=== PATIENT | female | born 1945 | race Caucasian/White ===

== ENCOUNTER 2022-01-25 08:20 | Inpatient (IN) | payer MEDICARE, BC, SELFPAY ==
[2022-01-25 08:37] VITALS: BMI 31.1
[2022-01-25 08:46] VITALS: BP 167/80; PULSE 77; RESP 14; TEMP 36.4; O2SAT 96; BMI 30.8
--- NOTE | 2022-01-25 09:48 | HMH.HP ---
*Admission Date: 01/25/22 *Chief complaint: chest pain *History of present illness: this patient presented to [facility] with episode of chest pain which was pressure and midsternal with relief with ntg and has elevated troponins and discussed with card and transferred for eval and treatment - no prev card issues and no recent stress test but has htn - i reviewed ed record and ekg from [facility] History I have reviewed the patient's past medical history: Yes Medical History: Reports:: Cancer (Lymphoma), Hyperlipidemia, Hypertension Denies:: Diabetes Mellitus Type 1, Diabetes Mellitus Type 2, MRSA *Have you ever received a pneumonia vaccine?: Yes *Have you received a flu vaccine this season?: Yes Other Medical History: Reports: Hypothyroidism Other Surgeries: Yes: , Hysterectomy-Total - *Social History Last grade of school completed: Some college Smoking Status: Never smoker Alcohol Intake: never *Occupational Status:: retired Household Members: spouse *Travel in the last 8 weeks: None Family Hx:: No significant family history Review of Systems - Review of Systems Review of systems:: pertinent systems reviewed and negative unless documented below - Constitutional Denies fever(s) - Eyes Denies change in vision - ENT Denies sore throat - *Cardiovascular Reports chest pain at rest, Reports radiating jaw, neck or arm pain - *Respiratory Denies cough - *Gastrointestinal Denies abdominal pain - *Genitourinary Denies blood in urine - *Musculoskeletal Denies joint pain - Integumentary/Breasts Denies rash - *Neurologic Denies headache(s), Denies seizure-like activity - Psychiatric Denies anxiety Meds Home Medications Medication Instructions Recorded Confirmed Type Cholecalciferol (Vitamin D3) 50,000 unit PO WEEKLY 01/25/22 01/25/22 History [Vitamin D3 50,000 unit Cap] Levothyroxine Sodium [Synthroid 75 mcg PO DAILY 01/25/22 01/25/22 History 75mcg (0.075mg) tablet] Lisinopril/Hydrochlorothiazide 1 tab PO BID 01/25/22 01/25/22 History [Lisinopril-Hctz 20-12.5 mg Tab*] Metoprolol Succinate [Metoprolol 50 mg PO DAILY 01/25/22 01/25/22 History Succinate 50mg Tablet*] Pantoprazole Sodium [Protonix 40mg 40 mg PO DAILY 01/25/22 01/25/22 History tablet] Propylene Glycol/Peg 400/Pf 1 each OP HS 01/25/22 01/25/22 History [Systane 0.3-0.4% Eye Drops] Trimethoprim 100 mg PO DAILY 01/25/22 01/25/22 History Allergies Allergy/AdvReac Type Severity Reaction Status Date / Time codeine Allergy Verified 01/25/22 08:55 nitrofurantoin Allergy Verified 01/25/22 08:55 [From Macrobid] peanut Allergy Verified 01/25/22 20:47 Penicillins Allergy Verified 01/25/22 08:55 Sulfa (Sulfonamide Allergy Verified 01/25/22 08:55 Antibiotics) Exam Vital signs and Labs for Last 24 Hours: Temp Pulse Resp BP Pulse Ox 97.5 F L 77 14 167/80 H 96 01/25/22 08:46 01/25/22 08:46 01/25/22 08:46 01/25/22 08:46 01/25/22 08:46 I & O for Last 24 hours: Intake & Output 01/22/22 01/23/22 01/24/22 01/25/22 11:59 11:59 11:59 11:59 Output Total 100 / 100 Balance -100 / -100 Weight 182 lb 8 oz - Constitutional no acute distress, obese - *Routine HEENT Exam Head: Present: normocephalic Eye: Present: EOMI, PERRL ENT: Present: mucous membranes dry - *Routine Neck Exam Present: supple. Absent: JVD - *Routine Respiratory Exam Present: CTA bilaterally - *Routine Cardiovascular Exam Present: RRR, murmur - *Routine Abdominal Exam Present: soft - *Routine Rectal Exam Rectal:: deferred - *Routine Genitalia Exam Genitalia:: deferred - *Routine Extremities Exam Absent: calf tenderness - *Routine Skin Exam Present: intact - *Routine Neurological Exam Present: alert, oriented X3, CN II-XII intact - Routine Psychiatric Exam Present: cooperative, good judgment Assessment and Plan (1) Chest pain Status: Acute
[2022-01-25 12:02] LABS: Coronavirus 19, PCR Not Detected (NotDetected); Influenza A, PCR Not Detected (NotDetected); Influenza B, PCR Not Detected (NotDetected)
--- NOTE | 2022-01-25 14:47 | P.CONPHA_ITS ---
[facility] Pharmacy VTE Monitoring - Patient Demographics Admission date: 01/25/22 Report Date: 01/25/22 Time: 14:47 Allergies/Adverse Reactions: Patient Allergies codeine Allergy (Verified 01/25/22 08:55) nitrofurantoin [From Macrobid] Allergy (Verified 01/25/22 08:55) Penicillins Allergy (Verified 01/25/22 08:55) Sulfa (Sulfonamide Antibiotics) Allergy (Verified 01/25/22 08:55) Height: 1.64 m Weight: 82.781 kg - VTE Risk VTE Score: 1 VTE Risk Level: Very Low Risk - Prophylaxis Types of VTE Prophylaxis: TEDS Knee High Location of Applied Device: Bilateral Lower Extremeties (WILMAR HOSE ORDERED)
[2022-01-25 16:00] VITALS: BP 146/67; PULSE 62; RESP 14; TEMP 36.4; O2SAT 93
[2022-01-25 16:41] VITALS: PULSE 70
--- NOTE | 2022-01-25 17:48 | PC.NURSE ---
pt has been up all shift. She is alert and approriate. Has denied any chest pain all shift. c/o JACK that was improved with tylenol.
[2022-01-25 20:00] VITALS: BP 141/65; PULSE 50; PULSE 54; RESP 16; TEMP 36.6; O2SAT 95
[2022-01-26] VITALS (14 sets, daily range): BP systolic 118–158; BP diastolic 53–86; PULSE 48–71; RESP 14–20; TEMP 36.5–36.7; O2SAT 90–95; BMI 31.3
--- NOTE | 2022-01-26 | IR_ITS ---
APPROVED REPORT Patient Location: Inpatient Director Of Construction: NICO Christianson RT (R) PROCEDURES Left heart catheterization Left ventriculogram Selective coronary angiogram Bilateral selective renal angiogram INDICATION Non-ST elevation myocardial infarction, Labile hypertension suspect renovascular hypertension, Suspect renal artery stenosis Informed consent was obtained prior to the procedure. COMPLICATIONS None Estimated Blood Loss: Less than 10 mls TECHNIQUE One percent lidocaine used to anesthetize the right anterior aspect of the wrist. The right radial artery was accessed via the Seldinger technique. A 6 Japanese sheath was placed in the right radial artery. 2.5 mg of verapamil, 800 mcg of nitroglycerin, 1mg Lidocaine and 5000 U Heparin were given through the arterial sheath. The papa catheter was also used to perform left heart catheterization, left ventriculogram and selective coronary angiogram. At the end of the procedure the sheath was removed good hemostasis was achieved using Traclet band, patient was transferred to the postop holding area in stable condition. ANGIOGRAPHIC RESULTS The left main artery Normal The left anterior descending artery Has mild proximal and mid vessel 10 to 20% luminal irregularities The circumflex artery Is large and dominant with mild 10% luminal irregularities The right coronary artery Nondominant without atherosclerosis. Large atrial branch has an anterior course and then dumps into the main stem of the pulmonary artery. 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 Medical management for coronary artery disease 2. Treatment of diastolic dysfunction which is the etiology for the elevated troponin 3. Treatment of hypertension Electronically signed by : Segundo Pryor MD 01/26/2022 14:58:41
[2022-01-26 06:28] LABS: Blood Urea Nitrogen 18 mg/dl (7-17); Calcium 8.7 mg/dl (8.4-10.2); Carbon Dioxide 29 mmol/L (22.0-30.0); Chloride 97 mmol/L (98-107); Chol/HDL Ratio 5.4 (1-3.5); Cholesterol 168 mg/dl (140-200); Creatinine Clearance Estimated 56 mL/min (50-200); Estimated Glomerular Filt Rate 48 ml/min (>60); GFR (African American) 58 ML/MIN (>60); Glucose 120 mg/dl (74-100); HDL Cholesterol 31 mg/dl (40-60); Sodium 129 mmol/L (136-145); Triglycerides 146 mg/dl (30-150); VLDL Cholesterol 29 mg/dL (0-40)
[2022-01-26 06:38] LABS: Direct LDL Cholesterol 93.68 mg/dL (100-129)
[2022-01-26 06:39] LABS: Basophils % 0.5 % (0.1-2.0); Eosinophils # 0.1 K/mm3 (0.0-0.4); Eosinophils % 1.8 % (0.1-12.0); Hematocrit 40.8 % (37.0-47.0); Hemoglobin 13.2 g/dL (12.2-16.2); Lymphocytes # 1.8 K/mm3 (0.7-4.5); Lymphocytes % 23.3 % (10-50); Mean Corpuscular HGB Conc 32.4 g/dL (31.8-35.4); Mean Corpuscular Volume 92.5 fl (81-99); Mean Platelet Volume 8.7 fl (7.4-10.4); Monocytes # 0.5 K/mm3 (0.1-1.0); Monocytes % 6.2 % (1.7-9.3); Neutrophils # 5.1 K/mm3 (1.8-7.8); Neutrophils % 68.2 % (37.0-80.0); Platelet Count 192 K/mm3 (142-424); Red Blood Count 4.41 M/mm3 (4.20-5.40); Red Cell Distribution Width 13.3 % (11.5-17.5); White Blood Count 7.5 K/mm3 (4.8-10.8)
--- NOTE | 2022-01-26 07:04 | PC.NURSE ---
late entry - no acute episodes overnight. No c/o of chest pain or soa during my shift. Pt being monitored via tele. IV infusing as ordered. Cardiology consult this AM. Call light in reach.
[2022-01-26 07:23] LABS: Anion Gap 7.3 mEq/L (5-15); Potassium 4.3 mmoL/L (3.5-5.1)
--- NOTE | 2022-01-26 07:35 | ECG_ITS ---
APPROVED REPORT Exam: Resting ECG HR:63 bpm ECG Measurements Heart Rate 63 AXES [place] 169 P -9 QRSd 82 QRS 63 QT 450 T 55 QTc 457 Conclusion SINUS RHYTHM WITH OCCASIONAL SUPRAVENTRICULAR PREMATURE COMPLEXES POSSIBLE RIGHT VENTRICULAR CONDUCTION DELAY [RSR (QR) IN V1/V2] BORDERLINE ECG UNCONFIRMED REPORT Electronically signed by : Gerber Waggoner MD 01/27/2022 16:40:40
--- NOTE | 2022-01-26 07:55 | PC.NURSE ---
critical magnesium passed on to Irlanda Graff RN at 0723 during report.
--- NOTE | 2022-01-26 08:00 | CA_ITS ---
APPROVED REPORT EXAM: Comprehensive 2D, Doppler, and color-flow Echocardiogram Corner Bead Operator: Deandra Schaffer RDCS Ht: 5 ft 6 in Wt: 182lbs BSA: 1.92 BP: 167/80 mmHg Indications: CP,HTN,HLP 2D Dimensions LVOT 1.50 cm (M/F) 1.5-2.5 M-Mode Dimensions RVDd 2.74 cm (0.9-2.6) LA Diam 4.00 cm (1.9-4.0) LVDd 4.54 cm (3.5-5.7) Ao Diam 2.36 cm (2.0-3.7) LVDs 3.09 cm (3.5-5.7) IVSd 0.84 cm (0.6-1.1) PWd 0.99 cm (0.6-1.1) EF (Teich) 60.20% FS 31.90% EDV (Teich) 94.40 mL ESV (Teich) 37.60 mL LV Diastology E Decel Time 217.00 (160-240 msec) E/A Ratio 0.6 MED E' 5.20 (< 7 cm/sec) E'/MED E' Ratio 9.71 (>14) LAT E' 4.90 (<10 cm/sec) E/LAT E' Ratio 10.31 (>14) Mitral Valve MV E Max Bandar. 50.00 (40-130 cm/s) MV A Velocity 83.00 (40-130 cm/s) E/A Ratio 0.61 MV Decel. Time 217.00 (160-240 ms) MV PHT 63.00 ms Left Ventricle Left atrium is mildly enlarged, left ventricle is normal size, mild concentric left ventricular hypertrophy, visually estimated ejection fraction 55% with no regional wall motion abnormality, grade 1 diastolic dysfunction seen without tissue Doppler evidence of raise left atrial pressure. Right Ventricle Right atrium and right ventricle are normal size and contractility. Aortic Valve Aortic valve is minimally thickened and fibrosed, there is no aortic stenosis or aortic insufficiency. Mitral Valve Mitral valve is grossly normal, there is trace mitral regurgitation. Tricuspid Valve Tricuspid valve grossly normal, there is trace tricuspid regurgitation, tricuspid rotation jet velocity is inadequate for calculation of the right ventricular systolic pressure. Pulmonic Valve Pulmonic valve is poorly visualized. Great Vessels Aortic root is normal size. Inferior vena cava normal size with normal inspiratory collapse. Pericardium No significant pericardial effusion noted. Conclusion 1. Mildly enlarged left atrium, normal left ventricular size, mild concentric left ventricular hypertrophy, visually estimated ejection fraction 55% with no regional wall motion abnormality, grade 1 diastolic dysfunction seen without tissue Doppler evidence of raise left atrial pressure. 2. Trace mitral and tricuspid regurgitation. 3. No significant pericardial effusion. 4. Inferior vena cava normal size with normal inspiratory collapse. Electronically signed by : Juan Diego Fletcher MD 01/26/2022 19:14:48
--- NOTE | 2022-01-26 08:01 | PC.NURSE ---
Dr. Sethi made aware verbally of MAG of 1.0.
--- NOTE | 2022-01-26 08:14 | HMH.CNCARD ---
History of Present Illness Consult date: 01/26/22 Requesting physician: Neftali Sethi Chief complaint: chest pain Additional Medical History:: 1. Hypertension 2. Hyperlipidemia A. History of diarrhea on statin therapy 3. Chest pain with elevated troponins, 01/25/2022 4. Hypothyroidism, on replacement therapy History of present illness: 76-year-old white female with history of hypertension presented to [facility] for evaluation of substernal chest pressure and squeezing sensation that has been intermittent with activity over the last 2 weeks. Reportedly troponins were noted to be elevated and arrangements were made for patient to be transferred to [facility] for cardiology consult. Patient is a non-smoker, nondiabetic with no prior history of coronary artery disease. She has a longstanding history of hypertension with recent fluctuations in blood pressure noted. She also describes several months history of intermittent fluttering sensation in the chest that only last 1 or 2 minutes. She denies any history of TIA or CVA symptoms. EKG is sinus rhythm with no acute ST segment changes. [facility] History Medical History: Reports:: Cancer (Lymphoma), Hyperlipidemia, Hypertension Denies:: Diabetes Mellitus Type 1, Diabetes Mellitus Type 2, MRSA *Have you ever received a pneumonia vaccine?: Yes *Have you received a flu vaccine this season?: Yes Other Medical History: Reports: Hypothyroidism Other Surgeries: Yes: , Hysterectomy-Total - *Social History Last grade of school completed: Some college Smoking Status: Never smoker Alcohol Intake: never *Occupational Status:: retired Household Members: spouse *Travel in the last 8 weeks: None Family Hx:: No significant family history Meds Home Medications Medication Instructions Recorded Confirmed Type Cholecalciferol (Vitamin D3) 50,000 unit PO WEEKLY 01/25/22 01/25/22 History [Vitamin D3 50,000 unit Cap] Levothyroxine Sodium [Synthroid 75 mcg PO DAILY 01/25/22 01/25/22 History 75mcg (0.075mg) tablet] Lisinopril/Hydrochlorothiazide 1 tab PO BID 01/25/22 01/25/22 History [Lisinopril-Hctz 20-12.5 mg Tab*] Metoprolol Succinate [Metoprolol 50 mg PO DAILY 01/25/22 01/25/22 History Succinate 50mg Tablet*] Pantoprazole Sodium [Protonix 40mg 40 mg PO DAILY 01/25/22 01/25/22 History tablet] Propylene Glycol/Peg 400/Pf 1 each OP HS 01/25/22 01/25/22 History [Systane 0.3-0.4% Eye Drops] Trimethoprim 100 mg PO DAILY 01/25/22 01/25/22 History Allergies Allergy/AdvReac Type Severity Reaction Status Date / Time codeine Allergy Verified 01/25/22 08:55 nitrofurantoin Allergy Verified 01/25/22 08:55 [From Macrobid] peanut Allergy Verified 01/25/22 20:47 Penicillins Allergy Verified 01/25/22 08:55 Sulfa (Sulfonamide Allergy Verified 01/25/22 08:55 Antibiotics) Exam Vital signs and Labs for Last 24 Hours: Temp Pulse Resp BP Pulse Ox 97.8 F 50 L 14 126/59 L 94 L 01/26/22 04:00 01/26/22 04:00 01/26/22 04:00 01/26/22 04:00 01/26/22 04:00 Laboratory Results - last 24 hr 01/25/22 11:34: SARS-CoV-2 (PCR) Not detected, Influenza A Untype (PCR) Not detected, Influenza Type B (PCR) Not detected 01/26/22 05:53: WBC 7.5, RBC 4.41, Hgb 13.2, Hct 40.8, MCV 92.5, MCH 30.0, MCHC 32.4, RDW 13.3, Plt Count 192, MPV 8.7, Neut % (Auto) 68.2, Lymph % (Auto) 23.3, Mclean % (Auto) 6.2, Eos % (Auto) 1.8, Baso % (Auto) 0.5, Neut # (Auto) 5.1, Lymph # (Auto) 1.8, Mclean # (Auto) 0.5, Eos # (Auto) 0.1, Baso # (Auto) 0.0 01/26/22 05:53: Sodium 129 L, Potassium 4.3, Chloride 97 L, Carbon Dioxide 29, Anion Gap 7.3, BUN 18 H, Creatinine 1.10 H, Estimated Creat Clear 56, Estimated GFR 48 L, Est GFR ( Amer) 58 L, Glucose 120 H, Calcium 8.7, Magnesium 1.0 L, Triglycerides 146, Cholesterol 168, LDL Cholesterol Direct 93.68 L, VLDL Cholesterol 29, HDL Cholesterol 31 L, Cholesterol/HDL Ratio 5.4 H I & O for Last 24 hour
--- NOTE | 2022-01-26 13:48 | PC.NURSE ---
Pt going to lab manager at this time.
--- NOTE | 2022-01-26 16:58 | HMH.DCSUM ---
General - General Admission date:: 01/25/22 Discharge date: 01/26/22 HPI HPI: this patient presented to [facility] with episode of chest pain which was pressure and midsternal with relief with ntg and has elevated troponins and discussed with card and transferred for eval and treatment - no prev card issues and no recent stress test but has htn - i reviewed ed record and ekg from [facility] - Hospital Course Hospital Course: Abnormal Lab Results 01/26/22 05:53: Sodium 129 L, Chloride 97 L, BUN 18 H, Creatinine 1.10 H, Estimated GFR 48 L, Est GFR ( Amer) 58 L, Glucose 120 H, Magnesium 1.0 L, LDL Cholesterol Direct 93.68 L, HDL Cholesterol 31 L, Cholesterol/HDL Ratio 5.4 H Ordering Physician: Segundo Pryor MD Date of Service: 01/26/22 Procedure(s): CL lhc w ventricle Accession Number(s): [id number] cc: Neftali Sethi MD; Segundo Pryro MD~ APPROVED REPORT Patient Location: Inpatient Bander Hand: NICO Christianson RT (R) PROCEDURES Left heart catheterization Left ventriculogram Selective coronary angiogram Bilateral selective renal angiogram INDICATION Non-ST elevation myocardial infarction, Labile hypertension suspect renovascular hypertension, Suspect renal artery stenosis Informed consent was obtained prior to the procedure. COMPLICATIONS None Estimated Blood Loss: Less than 10 mls TECHNIQUE One percent lidocaine used to anesthetize the right anterior aspect of the wrist. The right radial artery was accessed via the Seldinger technique. A 6 Danish sheath was placed in the right radial artery. 2.5 mg of verapamil, 800 mcg of nitroglycerin, 1mg Lidocaine and 5000 U Heparin were given through the arterial sheath. The papa catheter was also used to perform left heart catheterization, left ventriculogram and selective coronary angiogram. At the end of the procedure the sheath was removed good hemostasis was achieved using Traclet band, patient was transferred to the postop holding area in stable condition. ANGIOGRAPHIC RESULTS The left main artery Normal The left anterior descending artery Has mild proximal and mid vessel 10 to 20% luminal irregularities The circumflex artery Is large and dominant with mild 10% luminal irregularities The right coronary artery Nondominant without atherosclerosis. Large atrial branch has an anterior course and then dumps into the main stem of the pulmonary artery. 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 Medical management for coronary artery disease 2. Treatment of diastolic dysfunction which is the etiology for the elevated troponin 3. Treatment of hypertension cardiology:OK for discharge home later today. Resume home medications with addition of Lasix 20 mg on Wednesday, Wednesday and Wednesday. BMP in 1 week and follow-up in our office in 1 week. Objective Vital signs: Temp Pulse Resp BP Pulse Ox 97.9 F 60 16 134/86 92 L 01/26/22 11:15 01/26/22 12:00 01/26/22 11:15 01/26/22 11:15 01/26/22 11:15 no acute distress - *Routine HEENT Exam Head: Present: normocephalic Eye: Present: PERRL ENT: Present: mucous membranes moist - *Routine Neck Exam Present: supple - *Routine Respiratory Exam Present: CTA bilaterally - *Routine Cardiovascular Exam Present: RRR - *Routine Abdominal Exam Present: soft, normoactive bowel sounds. Absent: tenderness - *Routine Extremities Exam Absent: cyanosis, clubbing, edema - *Routine Skin Exam Present: warm. Absent: rash - *Routine Neurological Exam Present: alert, oriented X3 Results Labs on day o
--- NOTE | 2022-01-26 20:42 | PC.NURSE ---
At time d/c was placed, pt did still have radial band on. Report given to Cindy Foster RN.
--- NOTE | 2022-01-26 21:39 | PC.NURSE ---
Radial band was removed. DSG placed to (R) radial cath site. Pt was monitored. No bleeding or hematoma noted. DC instructions provided. Medication prescription given. Pt left in WC to family car to home.
== END 2022-01-26 21:39 | disposition home or self-care (01) | DRG 281 ==
PROVIDERS: Internal Medicine; Admitting Provider Emergency Medicine; PCP Emergency Medicine; Visit Provider Emergency Medicine
PROC: 4A023N7 Measurement of Cardiac Sampling and Pressure, Left Heart, Percutaneous Approach (ICD-10-PCS; principal; 2022-01-26 11:00)
DX: I21.4 Non-ST elevation (NSTEMI) myocardial infarction (principal); C85.90 Non-Hodgkin lymphoma, unspecified, unspecified site; I25.10 Atherosclerotic heart disease of native coronary artery without angina pectoris; I10 Essential (primary) hypertension; E78.5 Hyperlipidemia, unspecified; E03.9 Hypothyroidism, unspecified; E66.9 Obesity, unspecified; Z68.31 Body mass index [BMI] 31.0-31.9, adult
CPT/HCPCS: 36252; 36415; 80048; 80061; 83735; 85025; 93005; 93306; 93458; 99152; C1725; C1769; C9803; J1644; J2405; Q9967; U0003; U0005

== ENCOUNTER → 2022-02-17 12:22 | Outpatient (CLI) | payer MEDICARE, BC, SELFPAY ==
--- NOTE | 2022-02-17 12:22 | CT_ITS ---
FINAL REPORT TECHNIQUE: Postcontrast axial images of the chest were performed in a CTA protocol. The study was performed with techniques to keep radiation dose as low as reasonably achievable, (ALARA). Individual dose reduction techniques using automated exposure control or adjustment of mA and/or kV according to the patient's size were employed. CLINICAL HISTORY: sob FINDINGS: The heart is normal in size. No adenopathy is identified. No pleural or pericardial effusion is identified. The mediastinal vasculature is well opacified. The thoracic aorta is normal in caliber with no focal aneurysm or dissection identified. No lung infiltrate or mass is identified. There is scarring in the lung bases. There is a moderate hiatal hernia. The images of the upper abdomen demonstrate moderately diffuse fatty infiltrated liver. There are postoperative changes from cholecystectomy. There is a benign-appearing cyst in the superior pole of the left kidney measuring 1.5 cm. IMPRESSION: No PE or dissection. Moderate hiatal hernia. Reviewed, Interpreted and Dictated by Issa Lay MD Transcribed by Carla Dumont Authenticated by Issa Lay MD on 02/17/2022 03:14:54 PM [facility]
== END ==
PROVIDERS: PCP Family Medicine; Visit Provider Internal Medicine
DX: R06.02 Shortness of breath (principal)
CPT/HCPCS: 71275; Q9967

== ENCOUNTER 2024-04-17 15:42 | Outpatient (CLI) | payer MEDICARE, BC, SELFPAY | END 2024-04-17 23:59 | disposition home or self-care (01) | LOC: RT 15:43 | PROVIDERS: PCP Family Medicine; Visit Provider Internal Medicine | DX: R06.00 Dyspnea, unspecified (principal); E66.9 Obesity, unspecified; I25.10 Atherosclerotic heart disease of native coronary artery without angina pectoris; E78.2 Mixed hyperlipidemia; H53.8 Other visual disturbances; Z68.31 Body mass index [BMI] 31.0-31.9, adult; I11.9 Hypertensive heart disease without heart failure | CPT/HCPCS: 93270 ==

== ENCOUNTER 2024-05-05 08:37 | Outpatient (CLI) | payer MEDICARE, BC, SELFPAY ==
--- NOTE | 2024-05-05 08:38 | MR_ITS ---
FINAL REPORT TECHNIQUE: Multiplanar MR, without and with gadolinium enhancement CLINICAL HISTORY: blurry vision RIGHT EYE COMPARISON: None FINDINGS: Diffusion sequences show no signal abnormality to indicate acute infarct. Mild atrophy is noted. There are periventricular white matter signal changes symmetrically and multiple small subcortical white matter signal changes. Findings are probably due to moderate chronic microvascular disease. No mass, hemorrhage or edema is seen. Ventricles are normal. Major vascular flow voids are intact. Following contrast administration, no abnormal parenchymal enhancement is seen. There is an enhancing lesion in the left frontal bone measuring up to 10 mm. This can be seen with a hemangioma or less likely malignant lesion such as myeloma or metastasis. IMPRESSION: Moderate chronic microvascular changes. No acute infarct or metastatic brain disease. Nonspecific 10 mm left frontal calvarial lesion as discussed above. Recommend bone scan for further characterization. Reviewed, Interpreted and Dictated by Manolo Sorto MD Transcribed by Dalia West Authenticated and [facility]
[2024-05-05] MEDS: GADOTERIDOL INJ 20ML SYRINGE 17 ML IV (09:32)
[2024-05-05] MEDS: SODIUM CHLORIDE 0.9% 10ML SYR (RAD ONLY) 10 ML IV (09:32)
--- NOTE | 2024-05-05 09:35 | CA_ITS ---
FINAL REPORT CLINICAL HISTORY: DIZZNESS,RT AMAUROSIS FUGAX,HTN FINDINGS: RIGHT CAROTID: CCA PSV - 87 cm/sec ICA PSV - 83 cm/sec ICA/CCA PSV ratio -1.8 . Comments: Moderate plaque disease is noted. LEFTCAROTID: CCA PSV - 79. cm/sec ICA PSV - 127. cm/sec ICA/CCA PSV ratio - 2.3 . Comments: Mild plaque disease is noted. Antegrade flow is seen within the vertebral arteries. IMPRESSION: Carotid stenosis classified less than 50% Reviewed, Interpreted and Dictated by Manolo Sorto MD Transcribed by Kayla Mejia Authenticated and [facility]
--- NOTE | 2024-05-05 09:36 | CA_ITS ---
APPROVED REPORT EXAM: Comprehensive 2D, Doppler, and color-flow Echocardiogram Lead Fire Protection Engineer: Deandra Schaffer RDCS Ht: 5 ft 4 in Wt: 179lbs BSA: 1.87 BP: 160/60 mmHg Indications: DEFINITY EXAM,ABN EKG,DD,CAD,HTN,HLP M-Mode Dimensions RVDd 3.00 cm (0.9-2.6) LA Diam 4.12 cm (1.9-4.0) LVDd 5.01 cm (3.5-5.7) LVDs 2.65 cm (3.5-5.7) IVSd 0.68 cm (0.6-1.1) PWd 0.68 cm (0.6-1.1) EF (Teich) 78.30% FS 47.10% EDV (Teich) 118.80 mL ESV (Teich) 25.80 mL LV Diastology E Decel Time 153 (160-240 msec) E/A Ratio 1.0 Mitral Valve MV E Max Bandar. 92.0 (40-130 cm/s) MV A Velocity 94.0 (40-130 cm/s) E/A Ratio 0.98 MV PHT 45.0 ms Left Ventricle The left ventricle is normal size. The left ventricular systolic function is normal. The left ventricular ejection fraction is within the normal range. Proximal septal thickening is noted. There is normal LV segmental wall motion. Grade 2 diastolic dysfunction is present. No left ventricle thrombus noted on this study. LVEF is 60%. Right Ventricle Right ventricle is mildly dilated. The right ventricular systolic function is normal. Atria Left atrium is mildly dilated. Right atrium is mildly dilated. There is no Doppler evidence of interatrial shunt. Aortic Valve The aortic valve is mildly thickened. There is no aortic valvular stenosis. Trace aortic regurgitation. Mitral Valve The mitral valve leaflets are mildly thickened. No evidence of mitral valve stenosis. Mild mitral regurgitation. Tricuspid Valve The tricuspid valve leaflets are thin and pliable. Mild tricuspid regurgitation. RVSP is 20-25 mmHg. Pulmonic Valve The pulmonary valve is normal in structure. Trace pulmonic regurgitation. Great Vessels The aortic root is normal in size. The ascending aorta is not well-visualized IVC is normal in size and collapses >50% with inspiration. Pericardium There is no pericardial effusion. Other Information Study Quality: Fair Conclusion Normal biventricular systolic function. Grade 2 diastolic dysfunction. Mild RV dilation. Mild biatrial dilation. Mild MR, mild TR. Electronically signed by : Irlanda Traore MD 05/11/2024 20:31:19
[2024-05-05] MEDS: DEFINITY US ECHO CONTRAST 2ML INJ 2 MG IV (11:17)
== END 2024-05-05 23:59 | disposition home or self-care (01) ==
LOC: RAD 08:38
PROVIDERS: PCP Family Medicine; Visit Provider Internal Medicine
DX: I11.9 Hypertensive heart disease without heart failure (principal); I25.10 Atherosclerotic heart disease of native coronary artery without angina pectoris; R06.00 Dyspnea, unspecified; E78.2 Mixed hyperlipidemia; R09.89 Other specified symptoms and signs involving the circulatory and respiratory systems; E66.9 Obesity, unspecified; Z68.31 Body mass index [BMI] 31.0-31.9, adult
CPT/HCPCS: 70553; 93306; 93880; A9576; Q9957

== ENCOUNTER 2024-05-29 08:37 | Outpatient (CLI) | payer MEDICARE, BC, SELFPAY ==
--- NOTE | 2024-05-29 08:38 | NM_ITS ---
FINAL REPORT CLINICAL HISTORY: left frontal bone lesion, hx of lymphoma on back of head 8:55am 25.9 [facility]ci tc mdp COMPARISON: MR head 05/05/2024 FINDINGS: WHOLE BODY BONE SCAN PROCEDURE: The patient was injected with 25.9 mCi of technetium 99M MDP. Images were obtained after a three-hour delay. FINDINGS: Faint increased tracer activity in the left frontal region best seen on coronal images corresponding to enhancing lesion in the left frontal bone. This could be due to metastasis, myeloma, or other prominent bone lesion. There is normal tracer distribution seen of the spine and ribs. There is abnormal uptake of the right hip region which may involve the acetabulum and/or proximal femur. There is degenerative related uptake in the patellofemoral joints, ankles, and hind feet. No other abnormal radiotracer activity identified. IMPRESSION: Abnormal activity left frontal bone, differential as above. Abnormal uptake of the right hip region. Recommend correlation with MRI or less desirable CT scan. Reviewed, Interpreted and Dictated by Manolo Sorto MD Transcribed by Dalia West Authenticated and [facility]
== END 2024-05-29 23:59 | disposition home or self-care (01) ==
LOC: RAD 08:38
PROVIDERS: PCP Family Medicine; Visit Provider Internal Medicine
DX: M95.2 Other acquired deformity of head (principal)
CPT/HCPCS: 78306; A9503

== ENCOUNTER 2024-06-20 13:59 | Outpatient (CLI) | payer MEDICARE, BC, SELFPAY ==
[2024-06-20 14:36] LABS: Basophils # 0.1 K/mm3 (0-0.2); Basophils % 1.5 % (0.1-2.0); Eosinophils # 0.3 K/mm3 (0.0-0.4); Eosinophils % 4.5 % (0.1-12.0); Hematocrit 42.6 % (37.0-47.0); Hemoglobin 13.4 g/dL (12.2-16.2); Lymphocytes # 1.6 K/mm3 (0.7-4.5); Lymphocytes % 25.3 % (10-50); Mean Corpuscular HGB Conc 31.4 g/dL (31.8-35.4); Mean Corpuscular Hemoglobin 30.9 pg (27.0-31.2); Mean Corpuscular Volume 98.5 fl (81-99); Mean Platelet Volume 7.9 fl (7.4-10.4); Monocytes # 0.3 K/mm3 (0.1-1.0); Monocytes % 5.6 % (1.7-9.3); Neutrophils # 3.9 K/mm3 (1.8-7.8); Neutrophils % 63.1 % (37.0-80.0); Platelet Count 247 K/mm3 (142-424); Red Blood Count 4.32 M/mm3 (4.20-5.40); White Blood Count 6.2 K/mm3 (4.8-10.8)
[2024-06-20 15:07] LABS: Alanine Aminotransferase 17 U/L (12-78); Albumin Level 3.9 g/dl (3.5-5.0); Albumin/Globulin Ratio 1.3 (1.1-1.8); Alkaline Phosphatase 45 U/L (38-126); Anion Gap 10.7 mEq/L (5-15); Aspartate Amino Transferase 21 U/L (14-36); Bilirubin,Total 0.5 mg/dl (0.2-1.3); Blood Urea Nitrogen 25 mg/dl (7-17); Calcium 9.3 mg/dl (8.4-10.2); Carbon Dioxide 29 mmol/L (22.0-30.0); Chloride 102 mmol/L (98-107); Estimated Glomerular Filt Rate 43 ml/min (>60); GFR (African American) 52 ML/MIN (>60); Glucose 151 mg/dl (74-100); Lactate Dehydrogenase 277 U/L (313-618); Potassium 3.7 mmoL/L (3.5-5.1); Sodium 138 mmol/L (136-145); Total Protein,Serum 6.9 g/dl (6.3-8.2)
[2024-06-30 09:50] LABS: PDF SCANNED IMAGE; Protein, Total 6.9
[2024-06-30 09:51] LABS: Albumin 3.6; Alpha-1-Globulin 0.3
[2024-06-30 09:52] LABS: Free Lambda Lt Chains 20.3
== END 2024-06-20 23:59 | disposition home or self-care (01) ==
LOC: LAB 13:59
PROVIDERS: PCP Family Medicine; Visit Provider Internal Medicine Medical Oncology
DX: R94.8 Abnormal results of function studies of other organs and systems (principal); M89.9 Disorder of bone, unspecified; M25.551 Pain in right hip; I10 Essential (primary) hypertension; Z79.899 Other long term (current) drug therapy
CPT/HCPCS: 36415; 80053; 83615; 83883; 84155; 84165; 85025

== ENCOUNTER 2024-06-23 15:12 | Outpatient (CLI) | payer MEDICARE, BC, SELFPAY ==
--- NOTE | 2024-06-23 15:15 | MR_ITS ---
FINAL REPORT CLINICAL HISTORY: BONY LESIONS.HX NON-HODGKINS LYMPHOMA IN 2010. RT SIDED POSTERIOR HIP PAIN COMPARISON: None FINDINGS: Multiplanar MR imaging of the right hip before and after the administration of IV contrast was obtained. There is no evidence of fracture or dislocation. There is moderate degenerative change of the right hip. There are osteochondral lesions and subchondral cysts involving the posterior femoral head and posterior acetabulum with bone marrow edema in these regions. There is no evidence of avascular necrosis. No labral tear is identified. Small bilateral hip joint effusions are present. There are high-grade partial tears of the distal gluteus medius and minimus tendons bilaterally. The musculature is intact. No soft tissue mass or cyst is identified. Sigmoid diverticulosis is noted. On the postcontrast images, there is mild contrast enhancement in the superior femoral head and superior acetabulum, likely reactive. 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 High-grade partial tears of the distal gluteus medius and minimus tendons bilaterally. Mild contrast enhancement likely reactive. Reviewed, Interpreted and Dictated by Bill Rinaldi III, MD Transcribed by Dalia West Authenticated and [facility]
[2024-06-23] MEDS: GADOTERIDOL INJ 20ML SYRINGE 17 ML IV (16:04)
[2024-06-23] MEDS: SODIUM CHLORIDE 0.9% 10ML SYR (RAD ONLY) 10 ML IV (16:04)
== END 2024-06-23 23:59 | disposition home or self-care (01) ==
LOC: RAD 15:13
PROVIDERS: PCP Family Medicine; Visit Provider Internal Medicine Medical Oncology
DX: M25.551 Pain in right hip (principal); R94.8 Abnormal results of function studies of other organs and systems
CPT/HCPCS: 73723; A9576

== ENCOUNTER 2024-09-13 13:56 | Outpatient (CLI) | payer MEDICARE, BC, SELFPAY ==
[2024-09-13 15:01] LABS: Blood Urea Nitrogen 28 mg/dl (7-17); Estimated Glomerular Filt Rate 43 ml/min (>60); GFR (African American) 52 ML/MIN (>60)
== END 2024-09-13 23:59 | disposition home or self-care (01) ==
LOC: LAB 13:57
PROVIDERS: PCP Family Medicine; Visit Provider Internal Medicine Medical Oncology
DX: R94.8 Abnormal results of function studies of other organs and systems (principal)
CPT/HCPCS: 36415; 82565; 84520

== ENCOUNTER 2024-09-15 06:51 | Outpatient (CLI) | payer MEDICARE, BC, SELFPAY ==
--- NOTE | 2024-09-15 06:59 | MR_ITS ---
FINAL REPORT CLINICAL HISTORY: F/U Abnormal Scan COMPARISON: 05/05/2024 FINDINGS: Multiplanar MR imaging of the brain was performed without and with contrast. There is moderate age-appropriate atrophy. Scattered foci of increased T2 signal are seen in the cerebral white matter that have a nonspecific appearance but likely represent moderate chronic ischemic/gliotic changes. There is no evidence of intracranial hemorrhage or mass. No abnormal ventricular dilatation is identified. There is no evidence of shift of the midline structures. No abnormal extra-axial fluid collection is seen. No area of abnormal restricted diffusion is identified. The posterior fossa and brainstem have an unremarkable appearance. Normal major vessel vascular flow voids are seen. 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 No new bony abnormality is identified. IMPRESSION: Moderate atrophy and chronic ischemic/gliotic changes, stable. 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 Would consider additional follow-up MRI with and without contrast in 12 months. Reviewed, Interpreted and Dictated by Bill Rinaldi III, MD Transcribed by Norma Winkler Authenticated and [facility]
[2024-09-15] MEDS: SODIUM CHLORIDE 0.9% 10ML SYR (RAD ONLY) 10 ML IV (07:44)
[2024-09-15] MEDS: GADOTERIDOL INJ 20ML SYRINGE 16 ML IV (07:44)
[2024-09-15 09:17] LABS: Alanine Aminotransferase 17 U/L (12-78); Albumin Level 4.6 g/dl (3.5-5.0); Albumin/Globulin Ratio 1.6 (1.1-1.8); Alkaline Phosphatase 42 U/L (38-126); Anion Gap 6.8 mEq/L (5-15); Aspartate Amino Transferase 25 U/L (14-36); Bilirubin,Total 0.7 mg/dl (0.2-1.3); Blood Urea Nitrogen 22 mg/dl (7-17); Calcium 9.4 mg/dl (8.4-10.2); Carbon Dioxide 31 mmol/L (22.0-30.0); Chloride 104 mmol/L (98-107); Estimated Glomerular Filt Rate 53 ml/min (>60); GFR (African American) 65 ML/MIN (>60); Globulin 2.8 g/dL (1.3-3.2); Glucose 112 mg/dl (74-100); Potassium 3.8 mmoL/L (3.5-5.1); Sodium 138 mmol/L (136-145); Total Protein,Serum 7.4 g/dl (6.3-8.2)
[2024-09-15 09:22] LABS: Hemoglobin A1C 6.4 % (4.0-6.0)
[2024-09-15 09:33] LABS: Free T4 (Free Thyroxine) 1.33 ng/dl (0.78-2.19)
[2024-09-15 09:49] LABS: Thyroid Stimulating Hormone 6.17 uIU/mL (0.465-4.68)
== END 2024-09-15 23:59 | disposition home or self-care (01) ==
LOC: RAD 06:53
PROVIDERS: PCP Family Medicine; Visit Provider Internal Medicine Medical Oncology
DX: R94.8 Abnormal results of function studies of other organs and systems (principal); E11.65 Type 2 diabetes mellitus with hyperglycemia
CPT/HCPCS: 36415; 70553; 80053; 83036; 84439; 84443; A9576